=== PATIENT | female | born 1950 | race African-American/Black ===

== ENCOUNTER 2021-03-15 21:11 | Inpatient (IN) | payer MEDICARE, MEDICAID ==
[~2021-03-15] VITALS: Ht 152.4 cm; Wt 59.4 kg
[2021-03-15] MEDS ORDERED: HYDROCODONE/ACETAMINOPHEN 5/325MG TABLET PO ONE (21:30)
[2021-03-16 04:46] LABS: BASOPHILS % 1.1 % (0.0-2.0); EOSINOPHILS % 3.4 % (0.0-5.0); HEMATOCRIT. 34.5 % (36.0-48.0); HEMOGLOBIN. 11.5 g/dL (12.0-16.0); LYMPHOCYTES % 42.4 % (20.0-50.0); MEAN CORPUSCULAR HEMOGLOBIN 27.6 pg (28.0-32.0); MEAN CORPUSCULAR VOLUME 82.9 fL (81.0-99.0); MEAN PLATELET VOLUME 9.8 fl (7.4-10.4); MONOCYTES % 5.3 % (2.0-8.0); NEUTROPHILS % 47.8 % (40.0-76.0); PLATELET 226 x1000/uL (130-400); RED BLOOD CELL COUNT 4.17 mill/uL (4.2-5.4); RED CELL DISTRIBUTION WIDTH 15.1 % (11.6-14.6)
[2021-03-16 04:59] LABS: CHLORIDE 115 mEq/L (98-107)
[2021-03-16] MEDS ORDERED: IOHEXOL-350 100 ML BOTTLE ONE (16:40)
[2021-03-16 17:20] VITALS: BP 146/94
[2021-03-16] MEDS ORDERED: IPRATROPIUM/ALBUTEROL 0.5-3(2.5)MG/3ML NEB HHN PRN (18:30)
[2021-03-16] MEDS ORDERED: ONDANSETRON HCL 4MG/2ML INJ IV PRN (18:30)
[2021-03-16] MEDS ORDERED: DIPHENHYDRAMINE 50MG/ML VIAL IV PRN (18:30)
[2021-03-16] MEDS ORDERED: MAGNESIUM/ALUMINUM HYDROXIDE/SIMETHICONE 30ML UDC PO PRN (18:30)
[2021-03-16] MEDS ORDERED: CLONIDINE 0.1MG TABLET PO PRN (18:30)
[2021-03-16] MEDS ORDERED: HYDRALAZINE 20MG/ML VIAL IV PRN (18:30)
[2021-03-16] MEDS ORDERED: MORPHINE SULFATE 2 MG/ML CPJ (NOT FOR IM USE) IV PRN (18:30)
[2021-03-16] MEDS ORDERED: HYDROCODONE/ACETAMINOPHEN 5/325MG TABLET PO PRN (18:30)
[2021-03-16] MEDS ORDERED: DOCUSATE SODIUM 100MG CAPSULE PO PRN (18:30)
[2021-03-16] MEDS ORDERED: GUAIFENESIN 200MG/10ML SUGAR FREE UDC PO PRN (18:30)
[2021-03-16] MEDS ORDERED: ACETAMINOPHEN 325MG TABLET PO PRN (18:30)
[2021-03-16] MEDS ORDERED: LORAZEPAM 2MG/ML CPJ IV PRN (18:30)
[2021-03-16] MEDS ORDERED: NALOXONE HCL 0.4MG/ML VIAL IV PRN (18:45)
[2021-03-16 20:00] VITALS: BP 137/56
[2021-03-16 20:01] VITALS: BP 149/94
[2021-03-16] MEDS: SODIUM CHLORIDE 0.9% INJ 3ML FLUSH IVF SCH (21:32)
[2021-03-16] MEDS: ENOXAPARIN 40MG/0.4ML SYR SUBCUT SCH (21:32)
[2021-03-16] MEDS ORDERED: ASPI81TA43 PO (23:12)
[2021-03-16] MEDS ORDERED: SIMV-43 PO (23:12)
[2021-03-16] MEDS ORDERED: AMLO10TA80 PO (23:12)
[2021-03-16] MEDS ORDERED: LATA2.5D14 EACHEYE (23:12)
[2021-03-16] MEDS ORDERED: HYDR-4135 PO (23:12)
[2021-03-16] MEDS ORDERED: DORZ10DR8 (23:12)
[2021-03-16] MEDS ORDERED: LISI20TA31 PO (23:12)
[2021-03-17] VITALS: BP 152/65
[2021-03-17 04:00] VITALS: BP 157/70
[2021-03-17] MEDS: SODIUM CHLORIDE 0.9% INJ 3ML FLUSH IVF SCH ×3 (05:28→21:25)
[2021-03-17 08:07] LABS: BASOPHILS % 1.1 % (0.0-2.0); EOSINOPHILS % 3.4 % (0.0-5.0); HEMATOCRIT. 32.9 % (36.0-48.0); HEMOGLOBIN. 11.4 g/dL (12.0-16.0); LYMPHOCYTES % 40.8 % (20.0-50.0); MEAN CORPUSCULAR HEMOGLOBIN 28.4 pg (28.0-32.0); MEAN CORPUSCULAR VOLUME 81.8 fL (81.0-99.0); MEAN PLATELET VOLUME 9.7 fl (7.4-10.4); NEUTROPHILS % 48.7 % (40.0-76.0); PLATELET 191 x1000/uL (130-400); RED BLOOD CELL COUNT 4.02 mill/uL (4.2-5.4); RED CELL DISTRIBUTION WIDTH 14.9 % (11.6-14.6)
[2021-03-17 08:15] LABS: CHLORIDE 115 mEq/L (98-107)
[2021-03-17 08:59] VITALS: BP 158/59
[2021-03-17] MEDS: ASPIRIN 81MG EC TABLET PO SCH (09:03)
[2021-03-17] MEDS ORDERED: POTASSIUM CHLORIDE 20MEQ/PACKET PO SCH (11:00)
[2021-03-17 11:15] VITALS: BP 140/62
[2021-03-17 16:21] VITALS: BP 130/57
[2021-03-17 20:00] VITALS: BP 144/58
[2021-03-17] MEDS: ENOXAPARIN 40MG/0.4ML SYR SUBCUT SCH (20:00)
[2021-03-17] MEDS: LATANOPROST 0.005% OPHTH DROPS 2.5ML BOTHEYE SCH (21:25)
[2021-03-17 21:44] LABS: CLARITY URINE CLEAR (CLEAR); COLOR URINE YELLOW (YELLOW); KETONES URINE NEGATIVE (NEGATIVE); LEUKOCYTE ESTERASE URINE NEGATIVE (NEGATIVE); NITRITE URINE NEGATIVE (NEGATIVE); OCCULT BLOOD URINE NEGATIVE (NEGATIVE); PH URINE 5.5 (4.5-8.0); PROTEIN URINE NEGATIVE (NEGATIVE); SPECIFIC GRAVITY URINE 1.014 (1.005-1.030); UROBILINOGEN URINE 0.2 E.U./dL (0.2-1.0)
[2021-03-17 21:59] LABS: *AMPHETAMINES SCREEN URINE NEGATIVE (NEGATIVE)
[2021-03-17 22:00] LABS: *BARBITURATES SCREEN URINE NEGATIVE (NEGATIVE); *BENZODIAZEPINES SCREEN URINE NEGATIVE (NEGATIVE); *COCAINE SCREEN URINE NEGATIVE (NEGATIVE); CANNABINOID URINE SCREEN NEGATIVE (NEGATIVE); OPIATES URINE SCREEN NEGATIVE (NEGATIVE); PHENCYCLIDINE URINE SCREEN NEGATIVE (NEGATIVE)
[2021-03-17 22:03] LABS: METHADONE URINE SCREEN NEGATIVE (NEGATIVE)
[2021-03-18] VITALS: BP 142/67
[2021-03-18 04:00] VITALS: BP 148/68
[2021-03-18] MEDS: SODIUM CHLORIDE 0.9% INJ 3ML FLUSH IVF SCH ×3 (05:41→20:37)
[2021-03-18 07:26] LABS: BASOPHILS % 0.8 % (0.0-2.0); EOSINOPHILS % 3.5 % (0.0-5.0); HEMATOCRIT. 32.5 % (36.0-48.0); HEMOGLOBIN. 11.2 g/dL (12.0-16.0); MEAN CORPUSCULAR HEMOGLOBIN 28.1 pg (28.0-32.0); MEAN CORPUSCULAR VOLUME 81.9 fL (81.0-99.0); MEAN PLATELET VOLUME 9.7 fl (7.4-10.4); MONOCYTES % 6.4 % (2.0-8.0); NEUTROPHILS % 48.3 % (40.0-76.0); PLATELET 207 x1000/uL (130-400); RED BLOOD CELL COUNT 3.97 mill/uL (4.2-5.4); RED CELL DISTRIBUTION WIDTH 14.8 % (11.6-14.6)
[2021-03-18 07:38] LABS: CHLORIDE 112 mEq/L (98-107)
[2021-03-18 07:47] LABS: LDL CHOLESTEROL 94 mg/dL (5-100)
[2021-03-18 07:48] LABS: HDL CHOLESTEROL 42 mg/dL (40-59)
[2021-03-18 08:00] VITALS: BP_SYST 117; BP_SYST 137; BP_DIAS 42; BP_DIAS 60
[2021-03-18 08:22] LABS: VITAMIN B12 SERUM 495 pg/mL (211-911)
[2021-03-18] MEDS: ASPIRIN 81MG EC TABLET PO SCH (09:44)
[2021-03-18] MEDS ORDERED: POTASSIUM CHLORIDE 20MEQ/PACKET PO NR (11:15)
[2021-03-18 12:00] VITALS: BP 137/60
[2021-03-18] MEDS ORDERED: LACTULOSE 20G/30ML UDC PO NR (13:00)
[2021-03-18 16:00] VITALS: BP 126/51
[2021-03-18 20:00] VITALS: BP 134/50
[2021-03-18] MEDS: ENOXAPARIN 40MG/0.4ML SYR SUBCUT SCH (20:37)
[2021-03-18] MEDS: ATORVASTATIN CALCIUM 40MG TABLET PO SCH (20:37)
[2021-03-18] MEDS: LATANOPROST 0.005% OPHTH DROPS 2.5ML BOTHEYE SCH (20:38)
[2021-03-18] MEDS: DORZOLAMIDE 2% OPHTH 10 ML BOTTLE BOTHEYE SCH (21:49)
[2021-03-19] VITALS: BP 143/67
[2021-03-19 04:01] VITALS: BP 130/41
[2021-03-19] MEDS: SODIUM CHLORIDE 0.9% INJ 3ML FLUSH IVF SCH ×3 (06:13→21:18)
[2021-03-19] MEDS: DORZOLAMIDE 2% OPHTH 10 ML BOTTLE BOTHEYE SCH ×3 (06:13→21:19)
[2021-03-19 07:10] LABS: BASOPHILS % 0.7 % (0.0-2.0); CHLORIDE 112 mEq/L (98-107); EOSINOPHILS % 3.1 % (0.0-5.0); HEMATOCRIT. 33.4 % (36.0-48.0); HEMOGLOBIN. 11.5 g/dL (12.0-16.0); MEAN CORPUSCULAR HEMOGLOBIN 28.1 pg (28.0-32.0); MEAN CORPUSCULAR VOLUME 81.5 fL (81.0-99.0); MEAN PLATELET VOLUME 9.6 fl (7.4-10.4); MONOCYTES % 5.9 % (2.0-8.0); NEUTROPHILS % 47.3 % (40.0-76.0); PLATELET 222 x1000/uL (130-400); RED CELL DISTRIBUTION WIDTH 15.1 % (11.6-14.6)
[2021-03-19 08:00] VITALS: BP 128/61
[2021-03-19] MEDS ORDERED: GADOTERATE MEGLUMINE 5 MMOL/10 ML VIAL IV ONE (09:37)
[2021-03-19] MEDS: ASPIRIN 81MG EC TABLET PO SCH (09:37)
[2021-03-19 12:00] VITALS: BP 146/62
[2021-03-19] MEDS: LACTULOSE 20G/30ML UDC PO PRN (13:34)
[2021-03-19 16:00] VITALS: BP 115/55
[2021-03-19 20:00] VITALS: BP 145/47
[2021-03-19] MEDS: ATORVASTATIN CALCIUM 40MG TABLET PO SCH (21:18)
[2021-03-19] MEDS: ENOXAPARIN 40MG/0.4ML SYR SUBCUT SCH (21:19)
[2021-03-19] MEDS: LATANOPROST 0.005% OPHTH DROPS 2.5ML BOTHEYE SCH (21:19)
[2021-03-20] VITALS: BP 136/43
[2021-03-20 04:00] VITALS: BP 154/70
[2021-03-20] MEDS: SODIUM CHLORIDE 0.9% INJ 3ML FLUSH IVF SCH ×3 (05:11→21:57)
[2021-03-20] MEDS: DORZOLAMIDE 2% OPHTH 10 ML BOTTLE BOTHEYE SCH ×3 (05:13→21:57)
[2021-03-20 08:00] VITALS: BP_SYST 130; BP_SYST 99; BP_DIAS 60; BP_DIAS 76
[2021-03-20] MEDS: AMLODIPINE 5MG TABLET PO SCH (09:11)
[2021-03-20] MEDS: ASPIRIN 81MG EC TABLET PO SCH (09:11)
[2021-03-20 12:00] VITALS: BP_SYST 126; BP_SYST 94; BP_DIAS 41; BP_DIAS 56
[2021-03-20 16:00] VITALS: BP 123/55
[2021-03-20 20:00] VITALS: BP 135/60
[2021-03-20] MEDS: ATORVASTATIN CALCIUM 40MG TABLET PO SCH (21:56)
[2021-03-20] MEDS: ENOXAPARIN 40MG/0.4ML SYR SUBCUT SCH (21:56)
[2021-03-20] MEDS: LATANOPROST 0.005% OPHTH DROPS 2.5ML BOTHEYE SCH (21:57)
[2021-03-21] VITALS: BP 142/57
[2021-03-21 04:00] VITALS: BP 156/74
[2021-03-21] MEDS: SODIUM CHLORIDE 0.9% INJ 3ML FLUSH IVF SCH ×3 (06:00→21:28)
[2021-03-21] MEDS: DORZOLAMIDE 2% OPHTH 10 ML BOTTLE BOTHEYE SCH ×3 (06:42→21:28)
[2021-03-21 08:00] VITALS: BP 141/72
[2021-03-21] MEDS: ASPIRIN 81MG EC TABLET PO SCH (08:56)
[2021-03-21] MEDS: AMLODIPINE 5MG TABLET PO SCH (08:57)
[2021-03-21 12:00] VITALS: BP 131/69
[2021-03-21 16:00] VITALS: BP 126/54
[2021-03-21 20:00] VITALS: BP 137/57
[2021-03-21] MEDS ORDERED: *PATIENT'S OWN MEDICATION STORAGE XX SCH (20:45)
[2021-03-21] MEDS: ENOXAPARIN 40MG/0.4ML SYR SUBCUT SCH (20:55)
[2021-03-21] MEDS: LATANOPROST 0.005% OPHTH DROPS 2.5ML BOTHEYE SCH (20:55)
[2021-03-21] MEDS: ATORVASTATIN CALCIUM 40MG TABLET PO SCH (20:55)
[2021-03-22] VITALS: BP 126/63
[2021-03-22 04:00] VITALS: BP 122/73
[2021-03-22] MEDS: DORZOLAMIDE 2% OPHTH 10 ML BOTTLE BOTHEYE SCH ×2 (05:33→13:46)
[2021-03-22] MEDS: SODIUM CHLORIDE 0.9% INJ 3ML FLUSH IVF SCH ×2 (05:33→13:45)
[2021-03-22 08:29] VITALS: BP 120/53
[2021-03-22] MEDS: LACTULOSE 20G/30ML UDC PO PRN (08:41)
[2021-03-22] MEDS: AMLODIPINE 5MG TABLET PO SCH (08:42)
[2021-03-22] MEDS: ASPIRIN 81MG EC TABLET PO SCH (08:42)
[2021-03-22 12:20] VITALS: BP 142/67
[2021-03-22 14:31] VITALS: BP 142/67
== END 2021-03-22 16:33 | disposition home health service (06) | DRG 68 ==
LOC: ER 21:11 → ENRESERV 03-16 14:21 → 6WST 03-16 17:20
PROVIDERS: ADMIT Internal Medicine; ATTEND Internal Medicine
PROC: 4A10X4Z Monitoring of Central Nervous Electrical Activity, External Approach (ICD-10-PCS; principal; 2021-03-19)
DX: I66.22 Occlusion and stenosis of left posterior cerebral artery (principal); D32.0 Benign neoplasm of cerebral meninges; E78.5 Hyperlipidemia, unspecified; E87.6 Hypokalemia; K59.00 Constipation, unspecified; D64.9 Anemia, unspecified; I10 Essential (primary) hypertension; M79.602 Pain in left arm; Z86.73 Personal history of transient ischemic attack (TIA), and cerebral infarction without residual deficits; Z91.14 Patient's other noncompliance with medication regimen; Z79.899 Other long term (current) drug therapy; Z88.0 Allergy status to penicillin; Z79.82 Long term (current) use of aspirin
CPT/HCPCS: 36415; 70496; 70553; 71045; 80048; 80053; 80061; 80305; 81003; 82607; 83735; 83880; 84439; 84443; 84484; 85025; 93005; 93306; 93880; 95816; 97161; 99285; A9577; J1650; Q9967

== ENCOUNTER 2021-12-24 13:57 | Emergency (ER) | payer MEDICARE, MEDICAID ==
[~2021-12-24] VITALS: Ht 165.1 cm; Wt 61.0 kg
[~2021-12-24 13:57] MED LIST: AMLO10TA80 PO; ASPI81TA43 PO; DORZ10DR8; HYDR-4135 PO; LATA2.5D14 EACHEYE; LISI20TA31 PO
[2021-12-24] MEDS ORDERED: TETANUS, DIPHTHERIA, PERTUSSIS VAC/PF 0.5ML (>10YR OLD) IM ONE (14:30)
[2021-12-24] MEDS ORDERED: SODIUM CHLORIDE 0.9% 1,000 ML IV ONE (14:30)
[2021-12-24 14:47] LABS: BASOPHILS % 1.1 % (0.0-2.0); EOSINOPHILS % 2.7 % (0.0-5.0); HEMOGLOBIN. 11.9 g/dL (12.0-16.0); LYMPHOCYTES % 34.7 % (20.0-50.0); MEAN CORPUSCULAR HEMOGLOBIN 26.4 pg (28.0-32.0); MEAN CORPUSCULAR VOLUME 80.1 fL (81.0-99.0); NEUTROPHILS % 56.5 % (40.0-76.0); PLATELET 228 x1000/uL (130-400); RED BLOOD CELL COUNT 4.49 mill/uL (4.2-5.4); RED CELL DISTRIBUTION WIDTH 16.4 % (11.6-14.6)
[2021-12-24 14:55] LABS: CHLORIDE 112 mEq/L (98-107)
[2021-12-24 15:01] LABS: ETHANOL BLOOD < 10 mg/dL
[2021-12-24] MEDS ORDERED: TRAM50TA3 MT (16:15)
[2021-12-24] MEDS ORDERED: NAPR-677 MT (16:15)
[2021-12-24 16:49] VITALS: BP 145/66
== END 2021-12-24 17:01 | disposition home or self-care (01) ==
LOC: ER 13:57
DX: S00.83XA Contusion of other part of head, initial encounter (principal); S00.11XA Contusion of right eyelid and periocular area, initial encounter; I10 Essential (primary) hypertension; Z88.0 Allergy status to penicillin; Z86.73 Personal history of transient ischemic attack (TIA), and cerebral infarction without residual deficits; Y04.0XXA Assault by unarmed brawl or fight, initial encounter; Y93.89 Activity, other specified; Y92.89 Other specified places as the place of occurrence of the external cause; Y99.8 Other external cause status
CPT/HCPCS: 36415; 70450; 70486; 80048; 80320; 85025; 90471; 90715; 96360; 99284; J7030; G0480